=== PATIENT | female | born 1980 | race American Indian/Alaskan Native ===

== ENCOUNTER 2016-09-28 09:15 | Outpatient (CLI) | payer MEDICAID ==
--- NOTE | 2016-09-28 12:36 | Ultrasound Report ---
Pelvic ultrasound: Right lower quadrant pain. Endovaginal and transabdominal imaging demonstrates an anteverted uterus measuring 4.2 x 5.7 x 10.7 cm. There is a 2.8 cm inhomogeneous and partially hypoechoic mass in the fundus. The endometrial thickness is 2.3 mm. Imaging of the left adnexa demonstrates that the ovary is enlarged measuring 6.9 cm with both cysts and hypoechogenic complex tissue. The right ovary by history has been surgically removed however in the right adnexa there is a well-defined relatively homogeneous and hypo-echogenic mass measuring 5 cm in size. Compared to this patient's prior exam in March 2016 this right adnexal mass is essentially unchanged. The left ovary has enlarged possibly due to the large cyst. Impression: 1. Stable, solid right adnexal mass. In view of the surgical history an endometrioma is again considered as etiology. 2. Enlarged left ovary with cysts. 3. Uterine fibroid.
--- NOTE | 2016-09-28 12:40 | Ultrasound Report ---
Complete abdominal ultrasound: Images of the liver, spleen, pancreas, and gallbladder are all echogenically unremarkable. The CBD diameter is 5.5 mm. The transverse diameter the proximal abdominal aorta is 1.9 cm. The right renal length is 11.7 cm and the kidney is echogenically unremarkable. The left renal length is 11.5 cm. There is a 5 cm exophytic echolucent mass extending from the inferior pole. The kidney is not otherwise remarkable. Impressions: Left renal cyst. No other pathology identified.
== END 2016-09-28 09:16 | disposition home or self-care (01) ==
LOC: US 09:15
PROVIDERS: ATTEND General Practice
DX: D25.9 Leiomyoma of uterus, unspecified (principal); N83.202 Unspecified ovarian cyst, left side; N28.1 Cyst of kidney, acquired; J30.9 Allergic rhinitis, unspecified; N80.9 Endometriosis, unspecified; Z90.721 Acquired absence of ovaries, unilateral
CPT/HCPCS: 76700; 76830; 76856

== ENCOUNTER 2016-12-19 06:09 | Observation (INO) | payer MEDICAID ==
--- NOTE | 2016-12-14 12:06 | Anesthesia Consultation ---
Anesthesia Consult and Med Hx Date of service: 12/14/16 - Airway Anesthetic Teeth Evaluation: Good (some broken in back has caps) - Pulmonary Exam CTA: Yes - Cardiac Exam Cardiac Exam: RRR - Pre-Operative Health Status ASA Pre-Surgery Classification: ASA3 Proposed Anesthetic Plan: General (no previous anesthesia problems) - Pulmonary Hx Smoking: Yes Hx Asthma: Yes (not being treated) - Cardiovascular System Hx Hypertension: Yes (x 14 yrs) - Central Nervous System Hx Psychiatric Problems: Yes (depression and anxiety) - Hematic Hx Anemia: Yes ("borderline") - Other Systems Hx Cancer: No Hx Obesity: Yes ([place])
[2016-12-14 12:10] LABS: Basophils % (Auto) 1.4 % (0.0-1.8); Eosinophils % (Auto) 2.6 % (0.0-4.3); Hematocrit 36.9 % (30.3-42.9); Hemoglobin 11.7 gm/dl (10.1-14.3); Mean Corpuscular HGB Conc 32 % (30-34); Mean Corpuscular Volume 71 fl (79-97); Platelet Count 245 K/mm3 (140-440); Red Blood Count 5.19 M/mm3 (3.65-5.03); Red Cell Distribution Width 14.2 % (13.2-15.2); White Blood Count 6.6 K/mm3 (4.5-11.0)
[2016-12-14 12:16] LABS: Mean Corpuscular Hemoglobin 23 pg (28-32)
[2016-12-14 12:22] LABS: Anion Gap 19 mmol/L; BUN/Creatinine Ratio 21.25; Blood Urea Nitrogen 17 mg/dL (7-17); Calcium 8.7 mg/dL (8.4-10.2); Carbon Dioxide 20 mmol/L (22-30); Chloride 105.7 mmol/L (98-107); Glucose 96 mg/dL (65-100); Potassium 3.8 mmol/L (3.6-5.0); Sodium 141 mmol/L (137-145)
[~2016-12-19 06:09] MED LIST: PEPCID IV NR
[2016-12-19] MEDS ORDERED: NACL BACTERIOSTATIC INFILTRATI ONE (06:27)
--- NOTE | 2016-12-19 06:48 | History and Physical Report ---
History of Present Illness Date of examination: 12/17/16 Date of admission: 12/19/2016 Chief complaint: 36y/o with a history of pelvic mass likely to be a leiomyoma on the right measuring 5cm. The patient has had right oophorectomy by report. Ultrasound demonstrates an enlarged left ovary with multiple cysts. The patient states she has painful heavy menses. She elects for surgical management. History of present illness: symptomatic uterine fibroids and ovarian cysts Past History Past Medical History: hypertension, other (endometriosis) Past Surgical History: section, other (right oophorectomy) [employer] History: chlamydia, gonorrhea Social history: single - Obstetrical History : 1 Para: 1 Hx # Term Pregnancies: 1 Number of Pregnancies: 0 Spontaneous Abortions: 0 Induced : 0 Number of Living Children: 1 Medications and Allergies Allergies Allergy/AdvReac Type Severity Reaction Status Date / Time latex Allergy Rash Verified 12/13/16 14:30 Penicillins Allergy Anaphylaxis Verified 12/13/16 14:30 Home Medications Medication Instructions Recorded Confirmed Last Taken Type Lisinopril/Hydrochlorothiazide 1 tab PO QDAY #30 tablet 03/08/16 12/19/16 Rx [Zestoretic 10-12.5 mg] HYDROcodone/APAP 5-325 [[place] 1 each PO Q6HR PRN #16 tablet 05/11/16 12/19/16 Rx 5-325 mg TAB] Active Meds: Active Medications Famotidine (Pepcid) 20 mg IV PREOP NR Lactated Ringer's (Lactated Ringers) 1,000 mls @ 125 mls/hr IV DIRECT WYATT Stop: 12/19/16 23:59 Midazolam HCl (Versed) 2 mg IV PREOP NR Stop: 12/19/16 23:59 Review of Systems All systems: negative Genitourinary: vaginal bleeding, pelvic pain - Vital Signs Vital signs: Vital Signs Temp Pulse Resp BP 98.2 F 88 16 138/92 12/14/16 11:30 12/14/16 11:30 12/14/16 11:30 12/14/16 11:30 Temp Pulse Resp BP Pulse Ox 98.2 F 88 16 138/92 12/14/16 11:30 12/14/16 11:30 12/14/16 11:30 12/14/16 11:30 - Physical Exam Breasts: Positive: deferred Cardiovascular: Regular rate Lungs: Positive: Clear to auscultation Abdomen: Positive: normal appearance Results Result Diagrams: 12/14/16 11:35 12/14/16 11:35 All other labs normal. Assessment and Plan - Patient Problems (1) Dysmenorrhea Current Visit: Yes Status: Acute Plan to address problem: scheduled for a robotic hysterectomy/BSO (2) Leiomyoma Current Visit: Yes Status: Acute (3) Ovarian cyst Current Visit: Yes Status: Acute (4) Dysfunctional uterine bleeding Current Visit: No Status: Acute
[2016-12-19] MEDS ORDERED: CLEOCIN 600 MG/50 mL 600 MG/50 ML BAG IV SCH (07:00)
[2016-12-19] MEDS ORDERED: GARAMYCIN 160 MG in NACL 0.9% 100 ML IV SCH (07:00)
[2016-12-19] MEDS ORDERED: LACTATED RINGERS 1,000 ML IV SCH (07:00)
[2016-12-19] MEDS ORDERED: VERSED IV NR (07:00)
[2016-12-19] MEDS ORDERED: PEPCID IV NR (07:00)
[2016-12-19] MEDS ORDERED: NEURONTIN PO NR (07:13)
[2016-12-19] MEDS ORDERED: SUBLIMAZE IV PRN (07:13)
[2016-12-19] MEDS ORDERED: ZOFRAN IV PRN ×2 (07:14→11:00)
--- NOTE | 2016-12-19 07:14 | Anesthesia Day of Surgery ---
Anesthesia Day of Surgery - Day of Surgery Patient Examined: Yes Patient H&P Reviewed: Yes Patient is NPO: Yes
[2016-12-19] MEDS ORDERED: MARCAINE-EPI/PF 0.5%-1:200,000 INFILTRATI ONE (07:17)
[2016-12-19] MEDS ORDERED: DECADRON ONE ×2 (07:17→07:20)
[2016-12-19] MEDS ORDERED: CLONIDINE 1,000 MCG/10 ML VIAL EP ONE (07:17)
[2016-12-19] MEDS ORDERED: XYLOCAINE 1% 20 mL ONE (07:17)
[2016-12-19] MEDS ORDERED: XYLOCAINE MPF 2% ONE (07:20)
[2016-12-19] MEDS ORDERED: ZOFRAN ONE (07:20)
[2016-12-19] MEDS ORDERED: SUBLIMAZE ONE (07:20)
[2016-12-19] MEDS ORDERED: DIPRIVAN 10 MG/ML IV ONE (07:20)
[2016-12-19] MEDS ORDERED: NEOSTIGMINE ONE (07:23)
[2016-12-19] MEDS ORDERED: ROBINUL ONE (07:23)
[2016-12-19] MEDS ORDERED: TORADOL ONE (07:30)
[2016-12-19] MEDS ORDERED: ZEMURON IV ONE (07:30)
[2016-12-19] MEDS ORDERED: NEOSPORIN GU IR ONE ×2 (07:48→10:00)
[2016-12-19] MEDS ORDERED: DILAUDID ONE ×2 (08:27→10:53)
[2016-12-19] MEDS ORDERED: BREVIBLOC IV ONE (08:38)
[2016-12-19] MEDS ORDERED: THROMBIN (BOVINE) TP ONE ×2 (08:47→10:00)
[2016-12-19] MEDS ORDERED: GELFOAM POWDER 1GM MM ONE ×2 (09:00→10:00)
[2016-12-19] MEDS ORDERED: LACTATED RINGERS 1,000 ML ONE ×2 (09:56→11:18)
[2016-12-19] MEDS ORDERED: NACL 0.9% IR ONE ×2 (10:00)
--- NOTE | 2016-12-19 10:20 | Operative Report ---
Operative Report Operative Report: Date of surgery: 12/19/2016 Preoperative diagnoses: Adnexal mass; pelvic pain; leiomyoma Postoperative diagnoses: Same as above; pelvic adhesive disease Procedure: Robotic hysterectomy; left salpingo-oophorectomy; extensive lysis of adhesions Surgeon: Carmen Jane M.D. Motion Study Analyst: Juan Hua Anesthesia: Gen. endotracheal anesthesia Estimated blood loss: 150 mL Pathology: Uterus, cervix, left tube and ovary Indication: 36-year-old with a history of pelvic pain and findings of a right adnexal mass. The patient had a history of a right salpingo-oophorectomy and presents with findings of a right adnexal mass. The ultrasound also demonstrated findings of an enlarged left adnexal mass. Procedure: The patient was taken to the operating room and given general endotracheal anesthesia without complication. She is prepped and draped in a normal sterile fashion. A bivalve speculum was placed in the patient's vagina and a single- tooth tenaculum placed on the anterior lip of the cervix. The uterus was sounded with the uterine sound. A [employer] uterine manipulator was placed in the bivalve speculum was then removed. Attention was then turned to the patient's abdomen where a millimeter supra umbilical skin incision was then made. A Veress needle was placed and peritoneal entry was verified water-filled syringe. Insufflation of the peritoneal cavity was performed with CO2 gas. The 12 mm trocar was then placed under direct visualization. An additional 8 mm trocar was placed on the patient's left and right lateral side just opposite of the supraumbilical trocar. An additional 5 mm right lateral trocar was then placed as the accessory port. The patient was then placed in steep Trendelenburg. The da Heather robot was then engaged. A fenestrated forcep was placed in arm 2 and a vessel sealer was placed in arm 1. The surgeon then transferred to the surgical console. General survey of the patient's abdomen and pelvis revealed evidence of multiple adhesions. There were adhesions of omentum to the anterior abdominal wall that were cauterized with the vessel sealer. The pelvic findings were significant for the bladder densely adherent to the lower uterine segment of the uterus. The posterior cul-de-sac was completely obliterated. There was findings of a right cysts involving the posterior cul-de-sac and right lateral aspect of the pelvis. The uterus was also noted to be densely adherent to the right pelvic sidewall. The left adnexa was significant for a enlarged hydrosalpinx and multiple ovarian cysts involving the ovary. The left adnexa was also densely adherent. Extensive lysis of adhesions had to be performed in order to release the adhesions. The monopolar scissors were used in order to perform sharp dissection of the bladder reflection off of the zygoma lower uterine segment. The bladder was insufflated with normal saline to better delineate the tissue lines. As noted previously the posterior cul-de-sac was completely obliterated with adhesions and findings of a right fluid collection involving the posterior cul-de-sac and right pelvic sidewall. The vesicouterine peritoneum was then entered from the patient's right side. The uterine vessels were then coagulated with the vessel sealer. The vessels were then transected . Attention was then turned to the patient's left side as noted before the left adnexa involved a large hydrosalpinx and multiple ovarian cysts. The left adnexa was adherent to the left pelvic sidewall and lysis of adhesions had to be performed. Once the uterine vessels could be adequately visualize the vessels were coagulated and transected. Additional lysis was a adhesions were performed on the left side to reflect the bladder off of the lower uterine segment. There was concern for the bowel being adherent in the posterior cul-de-sac. Incidental cystotomy of the right fluid collection was performed with findings of a thick fluid. The left ovary was significant for findings of a endometrioma. Lysis of adhesions were performed in the posterior cul-de-sac. Decision was made to proceed with a supracervical hysterectomy. The vesical peritoneum was then entered from the left and joined in the midline. Peritoneum was reflected off of the lower uterine segment. Uterine vessels were then coagulated and then transected. The blood supply to the uterus was adequately contained. The uterus was then amputated from the cervix. With removal of the uterus the cervix was better visualized. The V care was used to assist and delineating the cervix. Lysis of adhesions were performed in the posterior and anterior cul-de-sac to better determine the margins of the cervix. Posterior colpotomy was created with the monopolar scissors. The incision was continued circumferentially until anterior colpotomy was made. The cervix was amputated from the vaginal cuff. The cervix and the uterine manipulator with a removed. The uterus with the left tube and ovary were passed through the vagina and a warm laparotomy sponge was placed and maintain the pneumoperitoneum. The vaginal cuff was then closed in a running fashion with V lock suture. Irrigation of the pelvis was performed. Thrombin and Gelfoam was applied to the incision. The supraumbilical 12 mm trocar site was closed with the Wolf Robertson device. The skin was then reapproximated with 4-0 Monocryl. The tissue was sent to pathology which included the cervix and uterus. The patient was then successfully extubated. She was then taken to the recovery room in stable condition. All sponge laps and needle counts were correct x2.
--- NOTE | 2016-12-19 10:40 | Post Anesthesia Evaluation ---
- Post Anesthesia Evaluation Patient Participated: Yes Airway Patent: Yes Stable Respiratory Function: Yes Nausea/Vomiting: No Temp > 96.8F: Yes Pain Manageable: Yes Adequeate Hydration: Yes Anesthesia Complications: No Block Receding Appropriately: Not Applicable Patient on Ventilator: No
[2016-12-19] MEDS: DILAUDID IV PRN ×2 (10:49→11:09)
[2016-12-19] MEDS ORDERED: MILK OF MAGNESIA PO PRN (11:00)
[2016-12-19] MEDS ORDERED: MORPHINE PCA 30MG/30ML IV SCH (11:00)
[2016-12-19] MEDS ORDERED: NARCAN 0.4 MG/1 ML IV PRN (11:00)
[2016-12-19] MEDS: D5LR 1,000 ML IV SCH (12:50)
[2016-12-19] MEDS: MORPHINE PCA 30MG/30ML IV SCH (12:50)
[2016-12-19] MEDS: TORADOL IV SCH ×2 (16:05→23:36)
[2016-12-20] MEDS: D5LR 1,000 ML IV SCH (02:02)
[2016-12-20] MEDS: TORADOL IV SCH (05:37)
--- NOTE | 2016-12-20 07:05 | Admit Criteria Form ---
Admission Criteria Documentation: AMBULATORY SURGERY EXCEPTION CRITERIA Ambulatory Surgery Exception Criteria ( Place 'X' for any and all applicable criteria): Surgery or procedure performed on ambulatory basis may require inpatient stay for[A] ANY ONE of the following(1)(2)(3)(4)(5)(6)(7)(8)(9): [X] I. A preoperative situation, condition, or finding that warrants inpatient stay as indicated by ANY ONE of the following: [] a) Inpatient care needed because of severity of a disease or condition rather than the surgery (eg, severe cardiac or respiratory disease, severe infection) (15) (16 ) (17) (18) [] b) Emergent procedure (eg, angioplasty for acute ischemia)(19) [X] c) Complex surgical approach or situation as indicated by ANY ONE of the following(3): [] i) Open approach needed instead of usual endoscopic, transcatheter, or other less invasive procedure [] ii) Difficult approach because of previous operation [] iii) Airway monitoring required after open neck procedures(20)(21) [X] iv) Large mass requiring unusually extensive dissection [] v) Additional complicating feature requiring inpatient care (eg, drain management)(22(23): [X] d) Major surgery in a pt with high anesthetic risk as indicated by ANY ONE of the following (2)(3)(5)(7)(8): [X] i) ASA risk class III or higher (severe systemic disease impairing function) [D] [] ii) Advanced age (eg, older than 85 years)(14)(24) [] iii) Symptomatic heart failure(25) [] iv) Symptomatic asthma or COPD(8)(21) [] v) Morbid obesity with hemodynamic or respiratory problems(20)( 21)(26)(27) [] vi) Obstructive sleep apnea(20)(21) [] vii) Former premature infants who are younger than 60 weeks [] viii) High risk for severe postoperative abnormalities (eg, severe postoperative hypocalcemia after parathyroidectomy for severe hyperparathyroidism)(27)( 28) [] ix) Unstable angina(25) [] e) Drug-related risk requiring inpatient stay as indicated by ANY ONE of the following(5)(10)(14)(32)(33) [] i) Procedure requires discontinuing drugs or other therapy (eg , antiarrhythmic medication, antiseizure medication), which necessitates inpatient observation or treatment.(18)(31) [] ii) Major surgery and high risk drug use as indicated by ANY ONE of the following: [] 1) Active abuse of cocaine or similar drug [] 2) Monoamine oxidase inhibitor use [] 3) Other drug identified as posing risk [] f) Inadequate outpatient care situation as indicated by ANY ONE of the following(5)(10)(14)(32)(33) [] i) Patient lives remote from medical facility and procedure has urgent complication potential, and temporary nearby residence cannot be arranged [] ii) Patient will have postprocedure incapacitation and inadequate assistance at home, or alternative level of care cannot be arranged. [] iii) Patient will have long general anesthesia or procedure side effect resolution time, and competent person to stay with patient on first postoperative night at home or alternative level of care cannot be arranged. []iv) Other inadequate outpatient situation that cannot be handled by other means [] II. A perioperative event, condition, or finding that warrants inpatient stay as indicated by ANY ONE of the following (1)(2)(3): [] a) Inadequate physiologic recovery: cardiovascular, respiratory, or hemodynamic status not normal or near preoperative baseline(18) [] b) Hemodynamic instability [] c) Patient not alert with near normal or baseline mental status [] d) Temperature not normal or as expected and not appropriate for outpatient treatment of condition [] e) Ambulatory or appropriate activity level status not yet achieved post procedure [E](34)(35)(36) [] f) Operative site not appropriate (eg, unexpected or excessive drainage or bleeding) [] g) Postoperative effects not resolved or adequately managed (eg, significant pain or vomiting not appropriate for outpatient or next level of care)(10)(12) [] h) Complicating features requiring inpatient care as indicated by ANY ONE of the following(37): [] i) Severe complications of procedure (eg, bowel injury, airway compromise, vascular injury,severe hemorrhage) [] ii) Extensive (eg, dissection far beyond usual scope of procedure ) or prolonged (eg, 120 minutes beyond usual) surgery needed requiring inpatient postoperative care [] iii) Conversion to an open or complex procedure that requires inpatient care (eg, open vs laparoscopic cholecystectomy, abdominal vs vaginal hysterectomy)(38) [] iv) Comorbid condition or test result identified during or post procedure that requires inpatient care (7) [] v) Malignant hyperthermia(30) [] vi) Other complicating feature requiring inpatient care(22)(23) Inpatient stay may be needed until ALL of the following are present (1)(2)(3)(4) (5)(6)(10)(14)(33)(40): []a) Physiologic recovery: cardiovascular, respiratory, and hemodynamic status normal or near preoperative baseline []b) Hemodynamic stability []c) Patient alert, with near normal or baseline mental status []d) Temperature appropriate: patient afebrile or temperature appropriate for outpt treatment of condition []e) Activity level appropriate: ambulatory or appropriate activity level post procedure []f) Operative site appropriate as indicated by ALL of the following: []i) Site dry or with expected drainage []ii) Any blood noted is as expected for procedure. []g) Postoperative effects resolved or managed as indicated by ALL of the following: []i) Pain management appropriate for outpatient (or next level of) care(10) []ii) Minimal nausea and vomiting: if present, successfully treated with oral medication(12) []iii) Headache, dizziness, or drowsiness (if present) are mild. []h) Voiding status acceptable as indicated by ANY ONE of the following: []i) Voiding spontaneously []ii) No voiding but instructions given for follow-up in 6 to 8 hours []iii) Urinary catheter in place, and instructions given for follow-up []i) Complicating features requiring inpatient care manageable at a lower level of care(37) []j) Comorbid conditions manageable at a lower level of care(37) The original [employer] [facility] the [facility] content created by [email or web address] has been revised. The portions of the content which have been revised are identified through the use of italic text or in bold, and [facility] has neither reviewed nor approved the modified material. All other unmodified content is copyright [employer] the [facility]. Please see references footnoted in the original [employer] the [facility] edition 2016 Admission Criteria Met: Yes
[2016-12-20] MEDS: MORPHINE PCA 30MG/30ML IV SCH (07:45)
[2016-12-20 08:11] LABS: Hematocrit 33.5 % (30.3-42.9); Hemoglobin 10.6 gm/dl (10.1-14.3)
--- NOTE | 2016-12-20 08:24 | Progress Note ---
Assessment and Plan - Patient Problems (1) Dysmenorrhea Current Visit: Yes Status: Acute Plan to address problem: routine postoperative care discharge home once meets discharge criteria (2) Leiomyoma Current Visit: Yes Status: Acute (3) Ovarian cyst Current Visit: Yes Status: Acute (4) Dysfunctional uterine bleeding Current Visit: No Status: Acute Subjective - Subjective Date of service: 12/20/16 Interval history: The patient's olivares has been removed but she has not voided yet. She tolerated a clear diet last night. Pain is better under control. Patient reports: appetite normal, pain well controlled Objective - Vital Signs Latest vital signs: Vital Signs Temp Pulse Resp BP BP Pulse Ox 12/20/16 08:01 18 12/20/16 05:41 18 12/20/16 04:10 18 12/20/16 04:00 98.8 F 69 18 109/69 12/20/16 00:00 99.0 F 70 18 99/64 12/19/16 23:40 18 12/19/16 22:10 20 12/19/16 21:42 99.3 F 87 18 100/59 12/19/16 20:00 18 12/19/16 18:00 16 12/19/16 16:10 97.9 F 90 17 128/78 12/19/16 12:58 18 12/19/16 11:50 98.2 F 87 20 138/85 12/19/16 11:30 81 15 160/92 100 12/19/16 11:27 16 12/19/16 11:15 97.6 F 80 13 152/93 100 12/19/16 11:09 14 12/19/16 11:08 16 12/19/16 11:00 78 16 160/94 100 12/19/16 10:49 16 12/19/16 10:45 79 14 156/88 100 12/19/16 10:35 80 14 159/90 100 12/19/16 10:30 84 18 100 12/19/16 10:25 98.3 F 97 H 14 154/86 100 Intake and Output 12/19/16 12/20/16 12/20/16 22:59 06:59 14:59 Intake Total 1700 480 Output Total 700 Balance 1000 480 Intake: IV 1700 D5lr 1,000 ml @ 125 mls/ 1000 hr IV DIRECT WYATT Rx#: [id number] Lactated Ringers 1,000 ml 700 As .ROUTE .[facility] ONE Rx#:[id number] Oral 480 Output: Urine 700 Indwelling Catheter 700 Other: Total, Intake Amount 480 Total, Output Amount 700 Voiding Method Indwelling Catheter # Voids Indwelling Catheter 2 # Bowel Movements 0 - Exam Abdomen: Present: normal appearance, soft
--- NOTE | 2016-12-20 08:27 | Discharge Summary ---
Providers - Providers Date of Admission: 12/19/16 10:32 Date of discharge: 12/20/16 Attending physician: GISELLE MANRIQUEZ Primary care physician: [employer]ICAL PROGRAMMER Hospitalization Reason for admission: other (pelvic pain; adnexal mass) Procedure: other (robotic hysterectomy/BSO/JOESPH) Incision: normal Discharge diagnosis: other (Pelvic pain; adnexal mass) Hospital course: The patient was admitted the day of surgery and underwent a robotic hysterectomy and a bilateral salpingo-oophorectomy. Please see operative note for details of surgery. Postoperative course was uneventful. The patient was discharged home once she met discharge criteria. Condition at discharge: Good Disposition: DC- TO HOME OR SELFCARE - Discharge Diagnoses (1) Dysmenorrhea Status: Acute (2) Leiomyoma Status: Acute (3) Ovarian cyst Status: Acute (4) Dysfunctional uterine bleeding Status: Acute Plan - Discharge Medications Prescriptions: Docusate Sodium [Colace] 100 mg PO BID PRN #60 capsule PRN Reason: Constipation Ibuprofen [Motrin] 800 mg PO Q8HR PRN #60 tablet PRN Reason: Pain Oxycodone HCl/Acetaminophen [Percocet 10/325 mg] 1 each PO Q6HR PRN #45 tablet PRN Reason: Pain - Provider Discharge Summary Activity: no sex for 6 weeks, no heavy lifting 4 weeks, no strenuous exercise Diet: routine Instructions: routine Additional instructions: [] Smoking cessation referral if applicable(refer to patient education folder for contact #) [] Refer to [facility]'s [facility] Booklet Call your doctor immediately for: * Fever > 100.5 * Heavy vaginal bleeding ( >1 pad per hour) * Severe persistent headache * Shortness of breath * Reddened, hot, painful area to leg or breast * Drainage or odor from incision. * Keep incision clean and dry at all times and follow doctor's instructions regarding bathing/showering followup in 4 weeks - Follow up plan
[2016-12-20] MEDS: MOTRIN PO PRN ×2 (12:07→17:33)
[2016-12-20] MEDS: PERCOCET 5/325 PO PRN ×3 (12:07→17:34)
[2016-12-21] MEDS: PERCOCET 5/325 PO PRN ×4 (01:14→14:09)
[2016-12-21] MEDS: MOTRIN PO PRN (10:00)
[2016-12-21 16:23] VITALS: BP 126/85
== END 2016-12-21 18:10 | disposition home or self-care (01) ==
LOC: OR 06:09 → OB 10:32 → INTOOBSV 12-20 14:08 → OBSVTOIN 12-20 14:08
PROVIDERS: ADMIT Obstetrics & Gynecology; ATTEND Obstetrics & Gynecology
DX: D25.9 Leiomyoma of uterus, unspecified (principal); N93.8 Other specified abnormal uterine and vaginal bleeding; N85.8 Other specified noninflammatory disorders of uterus; N94.6 Dysmenorrhea, unspecified; N83.209 Unspecified ovarian cyst, unspecified side; K66.0 Peritoneal adhesions (postprocedural) (postinfection); E66.01 Morbid (severe) obesity due to excess calories; D21.9 Benign neoplasm of connective and other soft tissue, unspecified; I10 Essential (primary) hypertension; F17.200 Nicotine dependence, unspecified, uncomplicated; F32.9 Major depressive disorder, single episode, unspecified; F41.9 Anxiety disorder, unspecified; Z98.891 History of uterine scar from previous surgery
CPT/HCPCS: 36415; 58571; 64450; 80048; 84703; 85014; 85018; 85025; 86850; 86900; 86901; 88307; 96374; 96375; 96376; A4217; G0378; J0735; J1100; J1170; J1580; J1885; J2250; J2270; J2405; J2704; J2710; J3010; J7120; J7121; S2900

== ENCOUNTER 2017-08-06 23:37 | Emergency (ER) | payer MEDICAID, OTHER ==
[2017-08-07] MEDS ORDERED: FLEXERIL PO ONE (04:43)
--- NOTE | 2017-08-07 04:46 | Emergency Department Report ---
HPI - General Chief Complaint: Extremity Problem,Nontraumatic Time Seen by Provider: 08/07/17 04:13 - HPI HPI: 37-year-old female with a history of arthritis and muscle spasms present to the complaining of left sided hip and thigh for any pain. Patient states she was standing on her feet at work all day which stimulated the pain. Patient's denies any trauma, injuries or falls. She denies calf pain bilaterally ED Past Medical Hx - Past Medical History Previous Medical History?: Yes Hx Hypertension: Yes (x 14 yrs) Hx Arthritis: Yes (hips) Hx Asthma: Yes (not being treated) Hx HIV: No Additional medical history: ADHESIONS. OVARIAN CYSTS - Surgical History Past Surgical History?: Yes Additional Surgical History: Right ovary removal 08/16 (secondary to a " ruptured cyst that became infected") - Social History Smoking Status: Current Every Day Smoker Substance Use Type: None - Medications Home Medications: Home Medications Medication Instructions Recorded Confirmed Last Taken Type Lisinopril/Hydrochlorothiazide 1 tab PO QDAY #30 tablet 03/08/16 12/19/16 Rx [Zestoretic 10-12.5 mg] HYDROcodone/APAP 5-325 [[place] 1 each PO Q6HR PRN #16 tablet 05/11/16 12/19/16 Rx 5-325 mg TAB] Docusate Sodium [Colace] 100 mg PO BID PRN #60 capsule 12/20/16 Unknown Rx Ibuprofen [Motrin] 800 mg PO Q8HR PRN #60 tablet 12/20/16 Unknown Rx Oxycodone HCl/Acetaminophen 1 each PO Q6HR PRN #45 tablet 12/20/16 Unknown Rx [Percocet 10/325 mg] Diclofenac Dr (Nf) 50 mg PO BID #40 tablet. 08/07/17 Unknown Rx Tizanidine HCl [Zanaflex] 2 mg PO DAILY #20 capsule 08/07/17 Unknown Rx ED Review of Systems ROS: Stated complaint: RIGHT SIDE BACK/LEG PAIN Other details as noted in HPI Constitutional: denies: chills, fever Eyes: denies: eye pain, eye discharge, vision change ENT: denies: ear pain, throat pain Respiratory: denies: cough, shortness of breath, wheezing Cardiovascular: denies: chest pain, palpitations Endocrine: no symptoms reported Gastrointestinal: denies: abdominal pain, nausea, diarrhea Genitourinary: denies: urgency, dysuria, discharge Musculoskeletal: denies: back pain, joint swelling, arthralgia Skin: denies: rash, lesions Neurological: denies: headache, weakness, paresthesias Psychiatric: denies: anxiety, depression Hematological/Lymphatic: denies: easy bleeding, easy bruising Physical Exam - Physical Exam Vital Signs: Vital Signs 08/07/17 08/07/17 01:27 01:53 Temperature 98.7 F 98.7 F Pulse Rate 101 H 101 H Respiratory 18 18 Rate Blood Pressure 155/110 155/110 O2 Sat by Pulse 100 100 Oximetry Physical Exam: GENERAL: Alert and oriented x3, no apparent distress, Normal Gait, atraumatic. HEAD: Head is normocephalic and a-traumatic. EYES: Extra ocular muscles are intact. Pupils are equal, round, and reactive to light and accommodation. EARS: symetrical, atraumatic, non tender, ear canal clear and moderate cerumen, tympanic membrance non inflamed. gross auditory nml bilaterally. NOSE: Nose symetrical, Nontender,Nares appeared normal. MOUTH:Mouth is well hydrated and without lesions. Tonsils nonerythematous or swollen, Uvula midline, Tongue not elevated. Mucous membranes are moist. Posterior pharynx clear, no exudate or lesions. Patent airways. NECK: Supple. Non edematous, No carotid bruits. No lymphadenopathy or thyromegaly. No C-spine tenderness LUNGS: Symetrical with respiration, No wheezing, no rales or crackles, CTAB. HEART: S1, S2 present, regular rate and rhythm without murmur, no rubs, no gallops. Non tender to palpation ABDOMEN: No organomegaly was noted,Positive bowel sounds, soft, and non- distended. . Nontender to palpation on all Quadrants, NO CVA tenderness. BACK: Full range of motion, no spinal tenderness, nontender to palpation. BREAST: Symetrical, Supple bilaterally, No Masses, lumps, lesions, ulcerations. GENITOURINARY: External genitalia without erythema, exudate or discharge. Vaginal vault is without discharge. Cervix is of normal color without lesion. Cervical os is closed. No bleeding noted. Uterus is noted to be of normal size and nontender. No cervical motion tenderness. No masses are palpated. The adnexa are without masses or tenderness. UROGENITAL: No scrotal mass, Scrotum non tender to palpation bilaterally, no hernia, no scars or penile discharge. EXTREMITIES/MUSCULOSKELETAL: No cyanosis, clubbing, rash, lesions or edema. Full ROM bilaterally. UE/LE Pulses 2+ bilaterally. LE and UE 5+ strength bilaterally, straight leg raise negative bilaterally NEUROLOGIC: The patient is cooperative with no focal neurologic deficits. Cranial nerves II through XII are grossly intact. Normal speech. Normal sensation in bilateral upper and lower extremities, No loss of sensation, No facial droop, Negative rhomberg. PSYCHIATRIC: Mood is congruent with affect, denies suicidal or homicidal ideations. SKIN: Warm and dry, No lesions, No ulceration or induration present. ED Course Vital Signs 08/07/17 08/07/17 01:27 01:53 Temperature 98.7 F 98.7 F Pulse Rate 101 H 101 H Respiratory 18 18 Rate Blood Pressure 155/110 155/110 O2 Sat by Pulse 100 100 Oximetry Critical care attestation.: If time is entered above; I have spent that time in minutes in the direct care of this critically ill patient, excluding procedure time. ED Disposition Clinical Impression: Myalgia, Lumbar radiculopathy Disposition: - TO HOME OR SELFCARE Is pt being admited?: No Does the pt Need Aspirin: No Condition: Stable Instructions: Lumbar Radiculopathy (ED), Osteoarthritis (ED), Arthralgia (ED) Additional Instructions: Make sure to follow up with the primary care physician as discussed. Take all your medications as you've been prescribed. If you have any worsening symptoms or develop new symptoms please return to ED immediately. Prescriptions: Diclofenac (Nf) 50 mg PO BID #40 tablet. Tizanidine HCl [Zanaflex] 2 mg PO DAILY #20 capsule Referrals: PRIMARY CARE, [Primary Care Provider] - 3-5 Days Forms: Accompanied Note, Work/School Release Form(ED) Time of Disposition: 06:32
[2017-08-07 06:02] LABS: Bilirubin,Urine NEG (Negative); Blood,Urine NEG (Negative); Color,Urine Yellow (Yellow); Mucus,Urine FEW /HPF; Nitrite,Urine NEG (Negative); Protein,Urine <15 mg/dL mg/dL (Negative); Urobilinogen,Urine < 2.0 mg/dL (<2.0); WBC,Urine < 1.0 /HPF (0.0-6.0)
[2017-08-07 06:03] LABS: HCG Qualitative,Urine Negative (Negative)
[2017-08-07] MEDS ORDERED: TORADOL ONE (06:19)
[2017-08-07] MEDS ORDERED: TORADOL IM ONE (06:20)
[2017-08-07 07:24] VITALS: BP 141/92
== END 2017-08-07 07:20 | disposition home or self-care (01) ==
LOC: ED 23:37
DX: M54.16 Radiculopathy, lumbar region (principal); M79.1 Myalgia; J45.909 Unspecified asthma, uncomplicated; F17.200 Nicotine dependence, unspecified, uncomplicated; I10 Essential (primary) hypertension; M25.551 Pain in right hip; M25.552 Pain in left hip; Z91.040 Latex allergy status; Z88.0 Allergy status to penicillin
CPT/HCPCS: 81001; 81025; 99283; J1885